=== PATIENT | male | born 1995 | race Caucasian/White ===

== ENCOUNTER 2017-02-28 20:29 | Emergency (ER) | payer BC ==
[~2017-02-28] VITALS: Ht 177.8 cm; Wt 52.4 kg
[2017-02-28 20:33] VITALS: TEMP 36.6; Ht 177.8 cm; Wt 52.4 kg
[2017-02-28] MEDS ORDERED: CIPRO 0.2%/HYDROCORTISONE 1% OTIC SUSP 10 ML BTL OT ONE (21:00)
[2017-02-28 21:02] VITALS: BP 119/73; PULSE 110; O2SAT 98
--- NOTE | 2017-03-01 00:32 | EMERGENCY ROOM VISIT NOTE ---
ED Visit Note First contact with patient: 20:37 CHIEF COMPLAINT: Earache HISTORY OF PRESENT ILLNESS: This 21-year-old male patient presents to the emergency department and states they have had a left sided earache for the past several days. The pain is moderate, and is gradually increasing. They have noticed swelling and tenderness around the ear canal and pain below the ear on the upper neck. The pain is rated as dull and 7/10. The patient has not been swimming recently. The patient has a history of ear problems like this previously. The patient has not had other URI symptoms. The patient has not had a fever. The patient has taken nothing relief of the pain. REVIEW OF SYSTEMS: A 6 system review of systems was completed with positives and pertinent negatives listed in the HPI. ALLERGIES: No known allergies MEDICATIONS: No chronic medications PMH: Otherwise healthy SOCIAL HISTORY: Lives locally PHYSICAL EXAM: Vital Signs: Reviewed Nurse's notes, vital signs stable. GENERAL : White female, in no acute distress, non toxic in appearance, well developed, well nourished. SKIN: Normal. MOUTH: The pharynx is normal in appearance and the tonsils are not enlarged. The airway is patent. There are no exudates over the tonsils. EARS: The left external auditory canal is swollen and inflamed and there is positive tragal tenderness. The tympanic membrane was not visualized secondary to debris in the canal. The right tympanic membrane is pearly santana without erythema or bulging and the external auditory canal is clear. HEART: Regular rate and rhythm without murmurs gallops or rubs. LUNGS: Clear to auscultation bilaterally without wheezes, rales or rhonchi. No dullness to percussion. No accessory muscle use. No retractions. ED COURSE: I examined the patient. He appears to have a left otitis externa. He will be given Cipro eardrops and instructions to have a recheck in the next 2 -3 days. He was otherwise invited back to the ER with any new, worsening, or concerning symptoms. Current/Historical Medications No Active Prescriptions or Reported Meds Allergies Coded Allergies: No Known Allergies (Unverified , 02/28/17) Vital Signs Date Time Temp Pulse Resp B/P (MAP) Pulse Ox O2 Delivery O2 Flow Rate FiO2 02/28/17 21:02 110 16 119/73 98 02/28/17 20:33 36.6 119 16 119/73 96 Room Air Medications Administered Medications (Trade) Dose Ordered Sig/Santos Route Start Time Stop Time Status Last Admin Dose Admin Ciprofloxacin/ Hydrocortisone (Cipro Hc Otic Susp) 2 drops NOW ONCE OT 02/28/17 21:00 02/28/17 21:01 DC 02/28/17 21:00 2 DROPS Departure Information Impression Primary Impression: Acute otitis externa of left ear Dispostion Home / Self-Care Condition GOOD Prescriptions No Active Prescriptions or Reported Meds Referrals No Doctor, Assigned [facility] (PCP) Forms HOME CARE DOCUMENTATION FORM, IMPORTANT VISIT INFORMATION Patient Instructions My [facility] Additional Instructions You were seen and evaluated today on an emergency basis only. This is not a substitute for, or an effort to provide, complete comprehensive medical care. It is not possible to recognize and treat all injuries or illnesses in a single emergency department visit. For this reason it is recommended that you followup with your primary care physician in the next 2-3 days for recheck of your condition. Use Cipro eardrops. Use 3 drops into the left ear twice daily for the next 7 days. Consider [id number] Sudafed and Afrin. For baseline pain relief you may alternate ibuprofen and acetaminophen every 4 hours for pain control. Take 600 mg ibuprofen (Advil) and then 4 hours later take 1000 mg acetaminophen (Tylenol). Do not take more than 3000 mg acetaminophen in a single day. You are welcome to return to the emergency department anytime with new, worsening, or concerning symptoms.
== END 2017-02-28 21:03 | disposition home or self-care (01) ==
LOC: C.EDB 20:31 → C.EDD 21:03
DX: H66.92 Otitis media, unspecified, left ear (principal)